=== PATIENT | female | born 1965 ===

== ENCOUNTER 2025-01-05 10:05 | Outpatient (AMB) | payer OTHER, SELFPAY ==
--- OUTSIDE RECORDS SUMMARY | 2023-09-18 11:15 | XMS_ITS ---
[facility] Address [address] [place] [address] Care Team Providers Care Fishing Tackle Repairer Name Role Phone LEEANN BELCHER Unavailable [phone] CHASE ORDONEZ Unavailable [phone] Medications Medication SIG (Take, Route, Frequency, Duration) Notes Start Date End Date Status Hydrocortisone 1 % 1 application Canine Service Teacher ally Twice a day; Duration: 7 days 2023 Active Cyclobenzaprine HCl 10 MG 1 tablet at be dtime as needed Orally Once a day; Duration: 7 days 2023 Active Celecoxib 100 MG 1 capsule with food Orally Once a day; Duration: 30 days 2023 Active amLODIPine Besylate 5 MG TAKE 1 TABLET B Y MOUTH EVERY DAY; Duration: 30 Active Losartan Potassium 25 MG 1 tablet Orally Once a day; Duration: 30 days Active Ipratropium-Albuterol 0.5-2.5 (3) MG/3ML 3 mL as needed Inhalation every 6 hrs; Duration: 20 Active FreeStyle Tuan 2 Sensor - as directed d x e11.8 intro q2w; Duration: 30 days 07/06/2022 Active FreeStyle Tuan 2 Sensor - apply one sen sor SQ every two weeks DX E11.9; Duration: 30 days 03/16/2023 Active Dexcom G7 Sensor - as directed intro ev jennifer 2 weeks dx e11.8; Duration: 30 days 04/18/2023 Active Ketoconazole 2 % 2% Externally daily; Duration: 7 days 2023 Active Omeprazole 40 MG TAKE 1 CAPSULE BY MO [facility] DAILY Oral Once a day; Duration: 30 days Active Mounjaro 10 MG/0.5ML 10 mg Subcutaneous once weekly; Duration: 30 days 01/27/2023 Active Encounters Encounter Location Date Provider Diagnosis [facility] [address] [address] 09/18/2023 CHASE ORDONEZ Hypertension, unspec ified type I10 ; Iron deficiency E61.1 ; Type 2 diabetes mellitus without complication, without long-term current use of insulin E11.9 ; BMI 34.0-34.9,adult Z68.34 and Gastroesophageal reflux disease without esophagitis K21.9 Assessments Encounter Date Diagnosis (ICD Code) Assessment Notes Treatment Notes Treatment Clinical Notes Section Notes 09/18/2023 Hypertension, unspecified type (ICD-10 - I10) Reviewed with patient the importance of medication and treatment plan compliance with BP goal of less then 140/90 per JNC 8 guidelines based on patient's age. This will ensure optimal health outcomes and prevent target organ damage. Made aware that uncontrolled hypertension may be silent and result in a stroke, heart attack, renal failure or even . Discussed the rationale for individualized medication regimen and the effects of their BP. Instructed to seek emergent care if the patient develops a headache, blurry vision, dizziness, chest pain or pressure. Of note, some information is being carried forward from prior records for informational purposes only and is being cited so that efficiency, safety and quality of the patient's care is not compromised This note was prepared using voice recognition software and direct typing Please excuse inadvertent hairpiece stylist or typing errors, or uncorrected word substitutions Although every attempt has been made by the provider to proofread this document, occasional misspellings and typographical errors may still be present Due to the previous pandemic, and the use of personal protective equipment (PPE) This may decrease voice recognition accuracy Inadvertent hairpiece stylist errors may occur 09/18/2023 Iron deficiency (ICD-10 - E61.1) Reviewed with patient the importance of medication and treatment plan compliance with BP goal of less then 140/90 per JNC 8 guidelines based on patient's age. This will ensure optimal health outcomes and prevent target organ damage. Made aware that uncontrolled hypertension may be silent and result in a stroke, heart attack, renal failure or even . Discussed the rationale for individualized medication regimen and the effects of their BP. Instructed to seek emergent care if the patient develops a headache, blurry vision, dizziness, chest pain or pressure. Of note, some information is being carried forward from prior records for informational purposes only and is being cited so that efficiency, safety and quality of the patient's care is not compromised This note was prepared using voice recognition software and direct typing Please excuse inadvertent hairpiece stylist or typing errors, or uncorrected word substitutions Although every attempt has been made by the provider to proofread this document, occasional misspellings and typographical errors may still be present Due to the previous pandemic, and the use of personal protective equipment (PPE) This may decrease voice recognition accuracy Inadvertent hairpiece stylist errors may occur 09/18/2023 Type 2 diabetes mellitus without complication, without long-term current use of insulin (ICD-10 - E11.9) Reviewed with patient the importance of medication and treatment plan compliance with BP goal of less then 140/90 per JNC 8 guidelines based on patient's age. This will ensure optimal health outcomes and prevent target organ damage. Made aware that uncontrolled hypertension may be silent and result in a stroke, heart attack, renal failure or even . Discussed the rationale for individualized medication regimen and the effects of their BP. Instructed to seek emergent care if the patient develops a headache, blurry vision, dizziness, chest pain or pressure. Of note, some information is being carried forward from prior records for informational purposes only and is being cited so that efficiency, safety and quality of the patient's care is not compromised This note was prepared using voice recognition software and direct typing Please excuse inadvertent hairpiece stylist or typing errors, or uncorrected word substitutions Although every attempt has been made by the provider to proofread this document, occasional misspellings and typographical errors may still be present Due to the previous pandemic, and the use of personal protective equipment (PPE) This may decrease voice recognition accuracy Inadvertent hairpiece stylist errors may occur 09/18/2023 BMI 34.0-34.9,adult (ICD-10 - Z68.34) Reviewed with patient the importance of medication and treatment plan compliance with BP goal of less then 140/90 per JNC 8 guidelines based on patient's age. This will ensure optimal health outcomes and prevent target organ damage. Made aware that uncontrolled hypertension may be silent and result in a stroke, heart attack, renal failure or even . Discussed the rationale for individualized medication regimen and the effects of their BP. Instructed to seek emergent care if the patient develops a headache, blurry vision, dizziness, chest pain or pressure. Of note, some information is being carried forward from prior records for informational purposes only and is being cited so that efficiency, safety and quality of the patient's care is not compromised This note was prepared using voice recognition software and direct typing Please excuse inadvertent hairpiece stylist or typing errors, or uncorrected word substitutions Although every attempt has been made by the provider to proofread this document, occasional misspellings and typographical errors may still be present Due to the previous pandemic, and the use of personal protective equipment (PPE) This may decrease voice recognition accuracy Inadvertent hairpiece stylist errors may occur 09/18/2023 Gastroesophageal reflux disease without esophagitis (ICD-10 - K21.9) Reviewed with patient the importance of medication and treatment plan compliance with BP goal of less then 140/90 per JNC 8 guidelines based on patient's age. This will ensure optimal health outcomes and prevent target organ damage. Made aware that uncontrolled hypertension may be silent and result in a stroke, heart attack, renal failure or even . Discussed the rationale for individualized medication regimen and the effects of their BP. Instructed to seek emergent care if the patient develops a headache, blurry vision, dizziness, chest pain or pressure. Of note, some information is being carried forward from prior records for informational purposes only and is being cited so that efficiency, safety and quality of the patient's care is not compromised This note was prepared using voice recognition software and direct typing Please excuse inadvertent hairpiece stylist or typing errors, or uncorrected word substitutions Although every attempt has been made by the provider to proofread this document, occasional misspellings and typographical errors may still be present Due to the previous pandemic, and the use of personal protective equipment (PPE) This may decrease voice recognition accuracy Inadvertent hairpiece stylist errors may occur Plan Of Treatment No Information Progress Notes * MINORChioDOB:1965 (59 yo F)Acc No.[id number]:09/18/2023 Progress Notes Patient: Chio WILSON Provider: Baylee ORDONEZ NP :1965 A ge:58 Y S ex:Female Date:09/18/2023 Address:[address] [place], [place] [address] Subjective: * Chief Complaints: * * HPI: C onstitutional: Patient is here for Chronic Disease Management follow-up visit Patient seen and examined. Full past medical history, social history, family history, allergies and current medications were reviewed and updated. Acute Concerns/Problem List: 09/18/2023 Patient was primarily managed in [facility] Past medical history that includes hypertension, hyperlipidemia, type 2 diabetes, microcytic anemia Was evaluated by hematology in November 2022 for chronic normocytic anemia Likely iron deficient secondary to menorrhagia and heavy periods iron infusions Comprehensive labs, June 2022 Total cholesterol 172, LDL 109, HDL 44, triglycerides 98 Electrolytes renal function LFTs are stable CBC revealing, hemoglobin of 8.8, hematocrit 30.1 MCV of 70, MCHC of 29.2, platelets of 331, 1+ schistocytes Hemoglobin A1c of 5.4 Insulin level of 18.5 TSH 1.6 Health maintenance Mammography PRISM MEASURER/PAP Colonoscopy screening January 2020 5-year surveillance recommended given colonic polyps. * ROS: A ll Other Systems: Review of Systems (ROS) A ll others negative except those mentioned in HPI. * Medical History: * Medications: T aking Ipratropium-Albuterol 0.5-2.5 (3) MG/3ML Solution 3 mL as needed Inhalation every 6 hrs , Taking FreeStyle Tuan 2 Sensor - Miscellaneous as directed dx e11.8 intro q2w , Taking FreeStyle Tuan 2 Sensor - Miscellaneous apply one sensor SQ every two weeks DX E11.9 , Taking Dexcom G7 Sensor - Miscellaneous as directed intro every 2 weeks dx e11.8 , Taking Ketoconazole 2 % Shampoo 2% Externally daily , Taking Hydrocortisone 1 % Cream 1 application Externally Twice a day , Taking Cyclobenzaprine HCl 10 MG Tablet 1 tablet at bedtime as needed Orally Once a day , Taking Celecoxib 100 MG Capsule 1 capsule with food Orally Once a day , Taking amLODIPine Besylate 5 MG Tablet TAKE 1 TABLET BY MOUTH EVERY DAY , Taking Losartan Potassium 25 MG Tablet 1 tablet Orally Once a day , Taking Omeprazole 40 MG Capsule Delayed Release TAKE 1 CAPSULE BY MOUTH DAILY Oral Once a day , Taking Mounjaro 10 MG/0.5ML Solution Pen-injector 10 mg Subcutaneous once weekly Objective: * Vitals: * Examination: G eneral Examination: GENERAL APPEARANCE: i n no acute distress, well developed, well nourished. H EAD: n ormocephalic, atraumatic. E YES: p upils equal, round, reactive to light and accommodation. E ARS: n ormal. O RAL CAVITY: m [place] moist. T HROAT: c lear. N NINA/THYROID: n nina supple, full range of motion, no cervical lymphadenopathy. S KIN: n o suspicious lesions, warm and dry. H EART: n o murmurs, regular rate and rhythm, S1, S2 normal. L UNGS: c lear to auscultation bilaterally. A BDOMEN: n ormal, bowel sounds present, soft, nontender, nondistended. E XTREMITIES: n o clubbing, cyanosis, or edema. N EUROLOGIC: n onfocal, motor strength normal upper and lower extremities, sensory exam intact. Assessment: * Assessment: 1. H ypertension, unspecified type - I10 (Primary) 2 . I behzad deficiency - E61.1 3 . T ype 2 diabetes mellitus without complication, without long-term current use of insulin - E11.9 4 . B AK 34.0-34.9,adult - Z68.34 5 . Gastroesophageal reflux disease without esophagitis - K21.9 Reviewed with patient the im portance of medication and treatment plan compliance with BP goal of less then 140/90 per JNC 8 guidelines based on patient's age. This will ensure optimal health outcomes and prevent target organ damage. Made aware that uncontrolled hypertension may be silent and result in a stroke, heart attack, renal failure or even . Discussed the rationale for individualized medication regimen and the effects of their BP. Instructed to seek emergent care if the patient develops a headache, blurry vision, dizziness, chest pain or pressure. Of note, some information is being carried forward from prior records for informational purposes only and is being cited so that efficiency, safety and quality of the patient's care is not compromised This note was prepared using voice recognition software and direct typing Please excuse inadvertent hairpiece stylist or typing errors, or uncorrected word substitutions Although every attempt has been made by the provider to proofread this document, occasional misspellings and typographical errors may still be present Due to the previous pandemic, and the use of personal protective equipment (PPE) This may decrease voice recognition accuracy Inadvertent hairpiece stylist errors may occur. Plan: * Treatment: * Procedure Codes: 9 9199 NO SHOW OFFICE VISIT * Images: Billing Information: * Visit Code: * Procedure Codes: 66666 NO SHOW OFFICE VISIT. Care Plan Details* * Electronic signature of AUSTEN ORDONEZ on 01/05/2025 at 12:40 PM EDT Sign off status: Pending * Provider: Baylee ORDONEZ NP Date: 09/18/2023 Generated for Corine pritchett/Roberta/Kelsea on: 0 01/05/2025 12:40 PM EDT History and Physical Notes * HPI (History of Present Illness) Category Sub-Category Detail Notes Category Not es Constitutional Patient is here for Chronic Disease Management follow-up visit Patient seen and examined. Full past medical history, social history, family history, allergies and current medications were reviewed and updated. Acute Concerns/Problem List: 09/18/2023 Patient was primarily managed in [facility] Past medical history that includes hypertension, hyperlipidemia, type 2 diabetes, microcytic anemia Was evaluated by hematology in November 2022 for chronic normocytic anemia Likely iron deficient secondary to menorrhagia and heavy periods iron infusions Comprehensive labs, June 2022 Total cholesterol 172, LDL 109, HDL 44, triglycerides 98 Electrolytes renal function LFTs are stable CBC revealing, hemoglobin of 8.8, hematocrit 30.1 MCV of 70, MCHC of 29.2, platelets of 331, 1+ schistocytes Hemoglobin A1c of 5.4 Insulin level of 18.5 TSH 1.6 Health maintenance Mammography PRISM MEASURER/PAP Colonoscopy screening January 2020 5-year surveillance recommended given colonic polyps Examination Category Sub-Category Detail Notes Category Not es General Examination GENERAL APPEARANCE: in no ac [place] distress, well developed, well nourished HEAD: normocephalic, atrau matic EYES: pupils equal, round, reactive to light and accommodation EARS: normal THROAT: clear NECK/THYROID: neck supple, full ra nge of motion, no cervical lymphadenopathy HEART: no murmurs, regular rate and rhythm, S1, S2 normal LUNGS: clear to auscultatio n bilaterally ABDOMEN: normal, bowel sounds present, soft, nontender, nondistended NEUROLOGIC: nonfocal, motor stre ngth normal upper and lower extremities, sensory exam intact SKIN: no suspicious lesion s, warm and dry EXTREMITIES: no clubbing, cyanosi s, or edema ORAL CAVITY: mucosa moist
--- OUTSIDE RECORDS SUMMARY | 2023-10-12 06:45 | XMS_ITS ---
Author Organization [facility] [address] Address [address] [place] [address] Care Team Providers Care Pencil Sorter Name Role Phone LEEANN BELCHER Unavailable [phone] Encounters Encounter Location Date Provider Diagnosis [facility] [address] [place] [address] 10/12/2023 LEEANN BELCHER Plan Of Treatment No Information Progress Notes * Chio MINORDOB:1965 (59 yo F)Acc No.[id number]:10/12/2023 Progress Notes Patient: Chio WILSON Provider: Jose RANGEL PA-C :1965 A ge:58 Y S ex:Female Date:10/12/2023 Address:[address] [place], [place] [id number] Subjective: * Chief Complaints: * * Medical History: Objective: * Vitals: Assessment: Plan: * Treatment: * Images: Billing Information: * Visit Code: * Procedure Codes: Care Plan Details* * Electronic signature of GABRIEL BELCHER PA-C on 01/05/2025 at 12:41 PM EDT Sign off status: Pending * Provider: Jose RANGEL PA-C Date: 10/12/2023 Generated for Corine pritchett/Roberta/Kelsea on: 01/05/2025 12:41 PM EDT
--- OUTSIDE RECORDS SUMMARY | 2023-12-06 06:45 | XMS_ITS ---
Author Organization [facility] [address] Address [address] [place] [address] Care Team Providers Care Ham Smoker Name Role Phone BELCHER, LEEANN Unavailable [phone] Angelika Guzman Unavailable [phone] Encounters Encounter Location Date Provider Diagnosis [facility] [address] [address] 12/06/2023 Angelika Guzman Plan Of Treatment No Information Progress Notes * MINORChio GaricaDOB:1965 (59 yo F)Acc No.[id number]:12/06/2023 Progress Notes Patient: Chio WILSON Provider: Garry Guzman PA-C :1965 A ge:58 Y S ex:Female Date:12/06/2023 Address:[address] [place], [place] [id number] Subjective: * Chief Complaints: * * Medical History: Objective: * Vitals: Assessment: Plan: * Treatment: * Images: Billing Information: * Visit Code: * Procedure Codes: Care Plan Details* * Electronic signature of Angelika Guzman PA-C on 01/05/2025 at 12:41 PM EDT Sign off status: Pending * Provider: Garry Guzman PA-C Date: 12/06/2023 Generated for Corine pritchett/Roberta/Kelsea on: 01/05/2025 12:41 PM EDT
--- OUTSIDE RECORDS SUMMARY | 2024-01-22 11:30 | XMS_ITS ---
Author Organization [facility] [address] Address [address] [place] [address] Care Team Providers Care Philosophy Faculty Member Name Role Phone BELCHER, LEEANN Unavailable [phone] Angelika Guzman Unavailable [phone] Encounters Encounter Location Date Provider Diagnosis [facility] [address] [address] 01/22/2024 Angelika Guzman Plan Of Treatment No Information Progress Notes * Chio MINORDOB:1965 (59 yo F)Acc No.[id number]:01/22/2024 Progress Notes Patient: Chio WILSON Provider: Garry Guzman PA-C :1965 A ge:58 Y S ex:Female Date:01/22/2024 Address:[address] [place], [place] [phone] Subjective: * Chief Complaints: * * Medical History: Objective: * Vitals: Assessment: Plan: * Treatment: * Images: Billing Information: * Visit Code: * Procedure Codes: Care Plan Details* * Electronic signature of Angelika Guzman PA-C on 01/05/2025 at 12:41 PM EDT Sign off status: Pending * Provider: Garry Guzman PA-C Date: 1 Generated for Corine pritchett/Roberta/Kelsea on: 0 01/05/2025 12:41 PM EDT
--- OUTSIDE RECORDS SUMMARY | 2024-03-18 11:30 | XMS_ITS ---
Author Organization [facility] [address] Address [address] [place] [address] Care Team Providers Care Coach Builder Name Role Phone LEEANN BELCHER Unavailable [phone] Angelika Guzman Unavailable [phone] Encounters Encounter Location Date Provider Diagnosis [facility] [address] [address] 03/18/2024 Angelika Guzman Plan Of Treatment No Information Progress Notes * MINORChio GarciaDOB:1965 (59 yo F)Acc No.[id number]:03/18/2024 Progress Notes Patient: Chio WILSON Provider: Garry Guzman PA-C :1965 A ge:58 Y S ex:Female Date:03/18/2024 Address:[address] [place], [place] [id number] Subjective: * Chief Complaints: * * Medical History: Objective: * Vitals: Assessment: Plan: * Treatment: * Images: Billing Information: * Visit Code: * Procedure Codes: Care Plan Details* * Electronic signature of Angelika Guzman PA-C on 01/05/2025 at 12:41 PM EDT Sign off status: Pending * Provider: Garry Guzman PA-C Date: 05/18/2023 Generated for Corine pritchett/Roberta/Kelsea on: 0 01/05/2025 12:41 PM EDT
--- NOTE | 2025-01-05 10:10 | A.OFFVIS_ITS ---
Intake Visit Reasons: ENP: Difficulty concentrating Allergies No Known Allergies Allergy (Verified 01/05/25 11:37) HPI Comments Details: 59-year-old woman with hypertension, diabetes, well-controlled asthma, chronic low back pain with scoliosis and stenosis (previously seen at [facility] and in [place], surgery recommended, but she declined), who is here for memory concerns. 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 The anxiety is related to her trouble maintaining conversations and recalling information. She uses AI tools to help with day-to-day work tasks, such as comprehending emails received and for help composing and sending emails, and admits this impairment is now affecting job performance. She needs more reminders and has to write everything down. Her anxiety has been compounded by these cognitive challenges. She recently started atenolol as needed for performance anxiety, which has helped some. She also reports having some shakiness in head that others notice. She has [employer] degree and was a straight A student. No significant new stressors. Sleep was okay, occasionally taking indica gummy. No daytime sleepiness. She denies significant alcohol use. No family history of dementia or tremors. No history of head trauma. [facility] Family History (System 01/05/25 @ 11:37 by Tracy Sharpe CNA) Father Diabetes Mother Hypertension Sister Smoldering myeloma Brother Brain aneurysm Review of Systems Const Denies chills, Denies daytime sleepiness, Denies difficulty sleeping, Denies fatigue, Denies fever(s), Denies frequent falls, Denies headache(s), Denies increased appetite, Denies poor appetite, Denies snoring, Reports weakness, Denies weight gain and Denies weight loss Eyes Reports blurry vision, Denies diplopia and Denies loss of vision ENT Denies vertigo, Denies dizziness, Denies dry mouth, Denies otalgia, Denies headache(s), Denies hearing loss, Denies epistaxis, Denies nasal congestion, Denies neck pain, Denies tinnitus, Denies sinus pain and Denies sore throat Card Denies chest pain at rest, Denies chest pain with activity, Denies syncope, Denies leg edema, Denies palpitations, Denies dyspnea and Denies dyspnea on exertion Resp Denies cough, Denies dyspnea, Denies dyspnea on exertion and Denies snoring GI Denies abdominal pain, Denies constipation, Denies heartburn, Denies diarrhea, Denies nausea and Denies vomiting Denies urinary frequency, Denies nipple discharge, Denies urinary incontinence and Denies urinary urgency Musc Reports abnormal gait (difficulty walking), Reports back pain, Denies myalgias, Reports arthralgias, Denies neck pain, Reports numbness, Denies stiffness and Reports tingling Skin/Breast Denies breast mass, Denies nipple discharge and Denies rash Neuro Reports abnormal gait (difficulty walking), Denies vertigo, Denies dizziness, Denies syncope, Denies frequent falls, Denies headache(s), Denies lack of coordination, Denies loss of vision, Reports memory loss, Reports numbness, Denies Other visual disturbances, Denies restless legs, Denies seizure-like activity, Reports tingling, Denies paresthesias, Reports tremor(s) and Reports weakness Psych Reports anxiety (performance anxiety, particularly related to cognitive decline), Denies depression, Reports memory loss, Denies visual hallucinations and Denies hallucinations Endo Reports cold intolerance, Denies fatigue, Denies heat intolerance, Denies polydipsia, Denies polyuria and Denies palpitations Skinny/Lymph Reports easy bruising Physical Exam Const Other: General Appearance:? normal, in no acute distress. Head:? normocephalic, atraumatic. Eyes:? sclera non-icteric, conjunctiva clear. Ears:? auditory canal clear, tympanic membrane intact, clear. Nose:? no lesions. Oral Cavity:? gums normal, mucosa moist, no lesions. Throat:? clear. Neck/Thyroid:? no cervical lymphadenopathy. Skin:? no rashes, no significant birthmarks. Heart:? S1, S2 normal, no murmurs. Lungs:? clear anteriorly and posteriorly. Chest:? no gross rib deformity, clear to auscultation. Extremities:? no edema. Psych:? alert, oriented, cognitive function intact, cooperative with exam. Tearful at times. Neuro Other: Mental Status:?Normal attention and affect, tearful at times. She does not know date. MMSE 26/30 Cranial Nerves:?Pupils are equal, round and reactive to light. External occular muscles are intact. Visual kim are full. Face is symmetrical. Facial sensations are normal. Tongue is midline. Palate elevates symmetrically. Shoulder shrugging is normal. Hearing to bedside conversation is normal. Motor Examination:?Normal muscle tone, bulk and strength,?Deep tendon reflexes are 2+,?Plantars are flexor.? Sensory Exam:?....? Coordination:?No ataxia,?no titubation.? Gait Exam: Within normal limits. Cerebellar Signs:?[id number] is okay. Extrapyramidal System:?No tremor, rigidity with normal facial expressions.? Pronator Drift:?Not present.? Involuntary Movements:?No tremors seen.? Speech:?Normal.? Assessment & Plan Assessment & Plan (1) MCI (mild cognitive impairment): Code(s): G31.84 - Mild cognitive impairment of uncertain or unknown etiology Category: Medical Plan: Brain MRI and labs ordered to assess possible underlying causes of memory impairment. (2) Anxiety: Code(s): F41.9 - Anxiety disorder, unspecified Category: Medical Plan: Continue atenolol 25mg 1 tablet as needed daily for anxiety. Plan Exam, findings, and plan reviewed with Dr. Dyer. Orders: Orders Vitamin B12 and Folate Today G31.84 - Mild cognitive impairment of uncertain or unknown etiology TSH reflex Free T4 Today G31.84 - Mild cognitive impairment of uncertain or unknown etiology MR head/brain wo con Today G31.84 - Mild cognitive impairment of uncertain or unknown etiology ABeta 42/40 p-tau 217 Eval Today G3.84 - Mild cognitive impairment of uncertain or unknown etiology Medications: New atenolol 25 mg PO DAILY PRN 30 tabs 2RF anxiety 30 days Coding Level of Care Code New Pt Level 5 (37309) Diagnoses MCI (mild cognitive impairment) G31.84 Anxiety F41.9
--- OUTSIDE RECORDS SUMMARY | 2025-01-05 12:41 | XMS_ITS | Patient Health Record ---
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 Twice a day; Duration: 7 days 2023 Active Cyclobenzaprine HCl 10 MG 1 tablet at be dtime as needed Orally Once a day; Duration: 7 days 2023 Active Celecoxib 100 MG 1 capsule with food Orally Once a day; Duration: 30 days 2023 Active Mounjaro 10 MG/0.5ML 10 mg Subcutaneous once weekly; Duration: 30 days 01/27/2023 Active Dexcom G7 Sensor - as directed intro ev jennifer 2 weeks dx e11.8; Duration: 30 days Active amLODIPine Besylate 5 MG TAKE 1 TABLET B Y MOUTH EVERY DAY; Duration: 30 Active Losartan Potassium 25 MG 1 tablet Orally Once a day; Duration: 30 days Active Ipratropium-Albuterol 0.5-2.5 (3) MG/3ML 3 mL as needed Inhalation every 6 hrs; Duration: 20 Active Omeprazole 40 MG TAKE 1 CAPSULE BY MO [facility] DAILY Oral Once a day; Duration: 30 days Active FreeStyle Tuan 2 Sensor - as directed d x e11.8 intro q2w; Duration: 30 days 07/06/2022 Active FreeStyle Tuan 2 Sensor - apply one sen sor SQ every two weeks DX E11.9; Duration: 30 days 03/16/2023 Active Ketoconazole 2 % 2% Externally daily; Duration: 7 days 2023 Active Problems Problem Type SNOMED Code ICD Code Onset Dates Problem Status W/U Status Risk Notes Problem Obesity (322136243) Other obesit y (E66.8) Active confirmed Problem Chronic pain (94516211) Other chronic pain (G89.29) Active confirmed Problem Sciatica (77849858) Lumbago with sciatica, right side (M54.41) Active confirmed Problem Backache (041255376) Dorsalgia, unspecified (M54.9) Active confirmed Problem Arthritis (0339348) Arthritis (M19.90) Active c onfirmed Problem Spinal stenosis (82059895) Spinal stenosis, unspecified spinal region (M48.00) Active confirmed Problem Essential hypertension (73658326) Hypertension, unspecified type (I10) Active confirmed Problem Body mass index 40+ - morbidly obese (102460256) BMI 40.0-44.9, adult (Z68.41) Active confirmed Problem Gastroesophageal reflux disease without esophagitis (832986609) Gastroesophageal reflux disease without esophagitis (K21.9) Active confirmed Problem Type II diabetes mellitus without complication (179240674) Type 2 diabetes mellitus without complication, without long-term current use of insulin (E11.9) Active confirmed Problem Obese class II (158925957034111) BMI 37.0-37.9, adult (Z68.37) Active confirmed Problem Mild intermittent asthma (059677023) Mild intermittent asthma without complication (J45.20) Active confirmed Problem Body mass index 30.00 to 34.99 (969771711920077) BMI 34.0-34.9,adult (Z68.34) Active confirmed Problem Scoliosis (562457149) Scoliosis, unspecified scoliosis type, unspecified spinal region (M41.9) Active confirmed Encounters Encounter Location Date Provider Diagnosis [facility] [address] [place] [id number] 01/21/2024 LEEANN BELCHER Plan Of Treatment Pending Test Test Name Order Date Mammogram 11/10/2022 IRON AND TOTAL IRON BINDING CAPACITY CBC (INCLUDES DIFF/PLT) 11/10/2022 URINALYSIS, COMPLETE 11/10/2022 HEMOGLOBIN A1c 11/10/2022 FERRITIN 11/10/2022 Insurance Providers Payer Name Payer Address Payer Phone Subscriber Number Group Number Insured Name Patient Relationship to Insured Coverage Start Date Coverage End Date [employer] (KATHERINE GOOD) [address] [place] [id number] [phone] [id number] Ch[place] Minor Self - patient is the insured Medical (General) History Medical History History ICD Code Essential hypertension I10 Asthma J45.909 Type 2 diabetes mellitus without complic ations E11.9 Hyperlipidemia, unspecified E78.5 anemia Spine: butterfly vertebrae, spinal steno sis, lumbar scoliosis, arthritis Surgical History Surgery Date(Month/Year) reconstructive breast surgery 2004 Hospitalization History Reason Date(Month/Year) asthma 2020
== END 2025-01-05 11:12 | disposition home or self-care (01) ==
PROVIDERS: PCP Internal Medicine; Visit Provider Registered Nurse
DX: G31.84 Mild cognitive impairment of uncertain or unknown etiology (principal); F41.9 Anxiety disorder, unspecified
CPT/HCPCS: 99204

== ENCOUNTER 2025-01-05 10:05 | Outpatient (REF) | payer OTHER, SELFPAY ==
[2025-01-05 12:52] LABS: Folate 11.6 ng/mL (> or = 4.0); Vitamin B12 440 pg/mL (200-900)
[2025-01-15 05:39] LABS: ABETA 42/40 Ratio 0.218 (> OR = 0.170); Alzeheimer's Interpretation Low Likelihood; Alzeimer's Disease Score 0.0077; Tau protein phosphorylated 217 0.19 pg/mL (< OR = 0.15)
== END 2025-01-05 10:06 | disposition home or self-care (01) ==
LOC: HO.LAB 10:05
PROVIDERS: PCP Internal Medicine; Visit Provider Registered Nurse
DX: G31.84 Mild cognitive impairment of uncertain or unknown etiology (principal); F41.9 Anxiety disorder, unspecified
CPT/HCPCS: 36415; 82233; 82234; 82607; 82746; 84393; 84443